=== PATIENT | female | born 1990 | race Caucasian/White ===

== ENCOUNTER 2019-12-08 00:37 | Emergency (ER) | payer MEDICAID, OTHER ==
[2019-12-08] MEDS ORDERED: Ketorolac 30 MG/ML SDV IVPUSH ONE (00:42)
--- NOTE | 2019-12-08 01:07 | EDM.PDOC ---
ED HPI GENERAL MEDICAL PROBLEM - General Chief Complaint: General Stated Complaint: PELVIC PAIN Time Seen by Provider: 12/08/19 00:41 Source of Information: Reports: Patient History Limitations: Reports: No Limitations - History of Present Illness INITIAL COMMENTS - FREE TEXT/NARRATIVE: Patient comes to ER from [facility] after experiencing sudden sharp lower left quadrant pain while at work. No history of similar pain in past. No history of ovarian cysts. Just finished LMP several days ago. Was feeling well before this. Eating and drinking normally. No UTI complaints. No Gi issues such as nausea/vomiting/constipation/loose stools. Pain radiates towards low back and also across lower abdomen a bit towards right. Tearful, slightly bent over upon arrival. Denies fevers/chills. Left Lower Pelvic Pain Score (Numeric/FACES): 7 - Related Data Allergies Allergy/AdvReac Type Severity Reaction Status Date / Time No Known Allergies Allergy Verified 12/08/19 00:46 Home Meds: Home Meds . [No Known Home Meds] 12/08/19 [History] Social & Family History - Tobacco Use Smoking Status *Q: Current Every Day Smoker Packs/Tins Daily: 0.5 - Caffeine Use Caffeine Use: Reports: Energy Drinks - Alcohol Use Alcohol Use History: No - Recreational Drug Use Recreational Drug Use: No Drug Use in Last 12 Months: No ED ROS GENERAL - Review of Systems Review Of Systems: Comprehensive ROS is negative, except as noted in HPI. ED EXAM, GENERAL - Physical Exam Exam: See Below Exam Limited By: No Limitations General Appearance: Alert, Moderate Distress Eye Exam: Bilateral Eye: EOMI, PERRL Ears: Hearing Grossly Normal Nose: No: Nasal Deformity, Nasal Swelling, Nasal Drainage Throat/Mouth: Normal Lips, Normal Voice, No Airway Compromise Head: Atraumatic, Normocephalic Neck: Supple, Non-Tender, Full Range of Motion Respiratory/Chest: No Respiratory Distress, Lungs Clear, Normal Breath Sounds, No Accessory Muscle Use, Chest Non-Tender Cardiovascular: Regular Rate, Rhythm, No Murmur GI/Abdominal: Normal Bowel Sounds, Soft, Tender (tender over left lower quadrant/suprapubic area with some milder tenderness noted right lower quadrant. ). No: Guarding, Rigid, Rebound (Female) Exam: Deferred Rectal (Female) Exam: Deferred Back Exam: Normal Inspection. No: CVA Tenderness (L), CVA Tenderness (R), Muscle Spasm, Paraspinal Tenderness, Vertebral Tenderness Extremities: Normal Inspection Neurological: Alert, Oriented, Normal Cognition, No Motor/Sensory Deficits Psychiatric: Anxious Skin Exam: Warm, Dry, Intact, Normal Color Course - Vital Signs Last Recorded V/S: Last Vital Signs Temp 36.4 C 12/08/19 08:15 Pulse 60 12/08/19 08:15 Resp 16 12/08/19 08:15 BP 116/77 12/08/19 08:15 Pulse Ox 97 12/08/19 08:15 - Orders/Labs/Meds Orders: Active Orders 24 hr Category Date Time Status Abdomen Pelvis w Cont [CT] Stat Exams 12/08/19 01:12 Taken Pelvis Non OB Comp [US] Stat Exams 12/08/19 08:12 Ordered Transvaginal Non OB [US] Stat Exams 12/08/19 08:13 Ordered Morphine Med 12/08/19 01:09 Active 2 mg IVPUSH Q1H PRN Sodium Chloride 0.9% [Saline Flush] Med 12/08/19 00:42 Active 10 ml FLUSH ASDIRECTED PRN Saline Lock Insert [OM.PC] Routine Oth 12/08/19 00:42 Ordered Medication Orders Morphine Sulfate (Morphine) 2 mg IVPUSH Q1H PRN PRN Reason: Pain Last Admin: 12/08/19 08:25 Dose: 2 mg Documented by: RICARDO Sodium Chloride (Saline Flush) 10 ml FLUSH ASDIRECTED PRN PRN Reason: Keep Vein Open Last Admin: 12/08/19 01:49 Dose: 10 ml Documented by: Admin: 12/08/19 01:18 Dose: 10 ml Documented by: SKYE Labs: Laboratory Tests 12/08/19 12/08/19 12/08/19 Range/Units 00:41 00:42 01:05 WBC 8.4 (4.0-10.2) K/uL RBC 4.17 (3.77-5.09) M/uL Hgb 12.7 (11.7-15.5) g/dL Hct 37.3 (34.0-46.0) % MCV 89.4 (84.0-98.0) fL MCH 30.5 (28.2-33.3) pg MCHC 34.0 (31.7-36.0) g/dL RDW 12.4 (11.2-14.1) % Plt Count 196 (150-350) K/uL Neut % (Auto) 66.3 (45.0-80.0) % Lymph % (Auto) 24.2 (10.0-50.0) % [place] % (Auto) 8.1 (2.0-14.0) % Eos % (Auto) 1.2 (0.0-5.0) % Baso % (Auto) 0.2 (0.0-2.0) % Neut # (Auto) 5.55 (1.40-7.00) K/uL Lymph # (Auto) 2.03 (0.50-3.50) K/uL [place] # (Auto) 0.68 (0.00-1.00) K/uL Eos # (Auto) 0.10 (0.00-0.50) K/uL Baso # (Auto) 0.02 (0.00-0.20) K/uL Sodium (136-145) mmol/L Potassium (3.5-5.1) mmol/L Chloride (98-107) mmol/L Carbon Dioxide (21.0-32.0) mmol/L BUN (7-18) mg/dL Creatinine (0.51-1.17) mg/dL Est Cr Clr Drug Dosing Estimated GFR (MDRD) mL/min Glucose (74-106) mg/dL Calcium (8.5-10.1) mg/dL Total Bilirubin (0.2-1.0) mg/dL AST (15-37) U/L ALT (12-78) U/L Alkaline Phosphatase (46-116) IU/L Total Protein (6.4-8.2) g/dL Albumin (3.4-5.0) g/dL Specimen Type Urinblad Urine Color Yellow Urine Appearance Clear Urine pH 7.0 (5.0-9.0) Ur Specific [place] 1.025 (1.005-1.030) Urine Protein Negative (NEGATIVE) mg/dL Urine Glucose (UA) Negative (NEGATIVE) mg/dL Urine Ketones Negative (NEGATIVE) mg/dL Urine Occult Blood Trace-intact H (NEGATIVE) Urine Nitrite Negative (NEGATIVE) Urine Bilirubin Negative (NEGATIVE) Urine Urobilinogen 1.0 (0.2-1.0) E.U./dL Ur Leukocyte Esterase Negative (NEGATIVE) Urine RBC 0-5 /HPF Urine WBC 0-5 /HPF Ur Epithelial Cells Few /LPF Urine Bacteria Not seen (NONE TO FEW) /HPF Urine HCG, Qual Negative 12/08/19 Range/Units 01:05 WBC (4.0-10.2) K/uL RBC (3.77-5.09) M/uL Hgb (11.7-15.5) g/dL Hct (34.0-46.0) % MCV (84.0-98.0) fL MCH (28.2-33.3) pg MCHC (31.7-36.0) g/dL RDW (11.2-14.1) % Plt Count (150-350) K/uL Neut % (Auto) (45.0-80.0) % Lymph % (Auto) (10.0-50.0) % [place] % (Auto) (2.0-14.0) % Eos % (Auto) (0.0-5.0) % Baso % (Auto) (0.0-2.0) % Neut # (Auto) (1.40-7.00) K/uL Lymph # (Auto) (0.50-3.50) K/uL [place] # (Auto) (0.00-1.00) K/uL Eos # (Auto) (0.00-0.50) K/uL Baso # (Auto) (0.00-0.20) K/uL Sodium 141 (136-145) mmol/L Potassium 3.7 (3.5-5.1) mmol/L Chloride 104 (98-107) mmol/L Carbon Dioxide 27.5 (21.0-32.0) mmol/L BUN 10 (7-18) mg/dL Creatinine 0.75 (0.51-1.17) mg/dL Est Cr Clr Drug Dosing TNP Estimated GFR (MDRD) > 60 mL/min Glucose 99 (74-106) mg/dL Calcium 8.6 (8.5-10.1) mg/dL Total Bilirubin 0.4 (0.2-1.0) mg/dL AST 19 (15-37) U/L ALT 20 (12-78) U/L Alkaline Phosphatase 81 (46-116) IU/L Total Protein 7.5 (6.4-8.2) g/dL Albumin 4.0 (3.4-5.0) g/dL Specimen Type Urine Color Urine Appearance Urine pH (5.0-9.0) Ur Specific [place] (1.005-1.030) Urine Protein (NEGATIVE) mg/dL Urine Glucose (UA) (NEGATIVE) mg/dL Urine Ketones (NEGATIVE) mg/dL Urine Occult Blood (NEGATIVE) Urine Nitrite (NEGATIVE) Urine Bilirubin (NEGATIVE) Urine Urobilinogen (0.2-1.0) E.U./dL Ur Leukocyte Esterase (NEGATIVE) Urine RBC /HPF Urine WBC /HPF Ur Epithelial Cells /LPF Urine Bacteria (NONE TO FEW) /HPF Urine HCG, Qual Meds: Medications Generic Name Dose Route Start Last Admin Trade Name Tierra PRN Reason Stop Dose Admin Morphine Sulfate 2 mg 12/08/19 01:09 12/08/19 08:25 Morphine IVPUSH 2 mg Q1H PRN Administration Pain Sodium Chloride 10 ml 12/08/19 00:42 12/08/19 01:49 Saline Flush FLUSH 10 ml ASDIRECTED PRN Administration Keep Vein Open Discontinued Medications Generic Name Dose Route Start Last Admin Trade Name Freq PRN Reason Stop Dose Admin Diatrizoate Meglum/Diatrizoate Sod 30 ml 12/08/19 01:15 Gastrografin 37% PO 12/08/19 01:16 ONETIME ONE Sodium Chloride 1,000 mls @ 150 mls/hr 12/08/19 01:08 12/08/19 01:42 Normal Saline IV 12/08/19 07:47 150 mls/hr .BOLUS ONE Administration Iopamidol 100 ml 12/08/19 01:15 Isovue-300 (61%) IVPUSH 12/08/19 01:16 ONETIME ONE Ketorolac Tromethamine 30 mg 12/08/19 00:42 12/08/19 01:15 Toradol IVPUSH 12/08/19 00:43 30 mg ONETIME ONE Administration Morphine Sulfate 2 mg 12/08/19 01:09 12/08/19 01:48 Morphine IVPUSH 12/08/19 01:10 2 mg ONETIME ONE Administration Ondansetron HCl 4 mg 12/08/19 01:08 12/08/19 01:48 Zofran IVPUSH 12/08/19 01:09 4 mg ONETIME ONE Administration - Re-Assessments/Exams Free Text/Narrative Re-Assessment/Exam: 12/08/19 01:05 Given history of sudden sharp lower abdominal pain suspect this could be related to ruptured ovarian cyst. Does not appear consistent with UTI/appy/diverticulitis/gastroenteritis. Unable to perform US study due to current hour. Pt agreeable with CT study for further evaluation. IV fluids/pain medications ordered. Labs pending. 08:[address] of abdomen/pelvis unremarkable. Plans made more US study in AM once tech available. Patient received PRN MS. Transfer of care to at 0900. Please refer to his note for final disposition and plan. Departure - Departure Time of Disposition: 08:56 Disposition: Still A Patient 30 Condition: Good Clinical Impression: Left lower quadrant abdominal pain - Discharge Information Referrals: PCP,None [Primary Care Provider] - Forms: ED Department Discharge Sepsis Event Note (ED) - Evaluation Sepsis Screening Result: No Definite Risk - Focused Exam Vital Signs: Vital Signs Temp Pulse Resp BP Pulse Ox 12/08/19 08:15 36.4 C 60 16 116/77 97 12/08/19 05:57 36.4 C 56 L 18 107/71 97 12/08/19 02:30 78 18 123/92 H 99 12/08/19 02:00 74 18 130/85 99 12/08/19 01:30 36.8 C 78 20 111/72 99 12/08/19 00:38 36.8 C 71 20 133/94 H 98 - My Orders Last 24 Hours: My Active Orders 12/08/19 00:42 Sodium Chloride 0.9% [Saline Flush] 10 ml FLUSH ASDIRECTED PRN Saline Lock Insert [OM.PC] Routine 12/08/19 01:09 Morphine 2 mg IVPUSH Q1H PRN 12/08/19 01:12 Abdomen Pelvis w Cont [CT] Stat 12/08/19 08:12 Pelvis Non OB Comp [US] Stat 12/08/19 08:13 Transvaginal Non OB [US] Stat - Assessment/Plan Last 24 Hours: My Active Orders 12/08/19 00:42 Sodium Chloride 0.9% [Saline Flush] 10 ml FLUSH ASDIRECTED PRN Saline Lock Insert [OM.PC] Routine 12/08/19 01:09 Morphine 2 mg IVPUSH Q1H PRN 12/08/19 01:12 Abdomen Pelvis w Cont [CT] Stat 12/08/19 08:12 Pelvis Non OB Comp [US] Stat 12/08/19 08:13 Transvaginal Non OB [US] Stat
[2019-12-08] MEDS ORDERED: Ondansetron 4 MG/2 ML SDV IVPUSH ONE (01:08)
[2019-12-08] MEDS ORDERED: Sodium Chloride 0.9% 1,000 ML IV ONE (01:08)
[2019-12-08] MEDS ORDERED: Morphine 2 MG/ML SYRINGE IVPUSH ONE (01:09)
[2019-12-08] MEDS ORDERED: Morphine 2 MG/ML SYRINGE IVPUSH PRN (01:09)
[2019-12-08] MEDS ORDERED: Diatrizoate Meglumine/Diatrizoate Sodium 37% 30 ML Bottle PO ONE (01:15)
[2019-12-08] MEDS ORDERED: Iopamidol 612 MG/ML 100 ML Bottle IVPUSH ONE (01:15)
[2019-12-08] MEDS: Sodium Chloride 0.9% 10 ML Syringe FLUSH PRN ×2 (01:18→01:49)
[2019-12-08 01:23] LABS: CHLORIDE,CL 104 mmol/L (98-107); SODIUM,NA 141 mmol/L (136-145)
--- NOTE | 2019-12-10 16:05 | EDM.PDOC ---
ED HPI GENERAL MEDICAL PROBLEM - General Chief Complaint: General Stated Complaint: PELVIC PAIN Time Seen by Provider: 12/08/19 00:41 Source of Information: Reports: Patient History Limitations: Reports: No Limitations - History of Present Illness INITIAL COMMENTS - FREE TEXT/NARRATIVE: Patient comes to ER from [facility] after experiencing sudden sharp lower left quadrant pain while at work. No history of similar pain in past. No history of ovarian cysts. Just finished LMP several days ago. Was feeling well before this. Eating and drinking normally. No UTI complaints. No Gi issues such as nausea/vomiting/constipation/loose stools. Pain radiates towards low back and also across lower abdomen a bit towards right. Tearful, slightly bent over upon arrival. Denies fevers/chills. Left Lower Pelvic Pain Score (Numeric/FACES): 7 - Related Data Allergies Allergy/AdvReac Type Severity Reaction Status Date / Time No Known Allergies Allergy Verified 12/08/19 00:46 Home Meds: Home Meds . [No Known Home Meds] 12/08/19 [History] Past Medical History - Past Health History Medical/Surgical History: Denies Medical/Surgical History Social & Family History - Tobacco Use Smoking Status *Q: Current Every Day Smoker Years of Tobacco use: 3 Packs/Tins Daily: 0.5 - Caffeine Use Caffeine Use: Reports: Energy Drinks - Recreational Drug Use Recreational Drug Use: No Drug Use in Last 12 Months: No ED ROS GENERAL - Review of Systems Review Of Systems: See Below : Reports: Other (pelvic pain) ED EXAM, GENERAL - Physical Exam Exam: See Below Free Text/Narrative:: Patient comes to ER from [facility] after experiencing sudden sharp lower left quadrant pain while at work. No history of similar pain in past. No history of ovarian cysts. Just finished LMP several days ago. Was feeling well before t his. Eating and drinking normally. No UTI complaints. No Gi issues such as nausea/vomiting/constipation/loose stools. Pain radiates towards low back and also across lower abdomen a bit towards right. Tearful, slightly bent over upon arrival. Denies fevers/chills. Exam Limited By: No Limitations General Appearance: Alert, Moderate Distress Ears: Hearing Grossly Normal Nose: No: Nasal Deformity, Nasal Swelling, Nasal Drainage Throat/Mouth: Normal Lips, Normal Voice, No Airway Compromise Head: Atraumatic, Normocephalic Neck: Supple, Non-Tender, Full Range of Motion Respiratory/Chest: No Respiratory Distress, Lungs Clear, Normal Breath Sounds, No Accessory Muscle Use, Chest Non-Tender Cardiovascular: Regular Rate, Rhythm, No Murmur GI/Abdominal: Normal Bowel Sounds, Soft, Tender (tender over left lower quadrant/suprapubic area with some milder tenderness noted right lower quadrant. ). No: Guarding, Rigid, Rebound Back Exam: Normal Inspection. No: CVA Tenderness (L), CVA Tenderness (R), Muscle Spasm, Paraspinal Tenderness, Vertebral Tenderness Extremities: Normal Inspection Neurological: Alert, Oriented, Normal Cognition, No Motor/Sensory Deficits Psychiatric: Anxious Skin Exam: Warm, Dry, Intact, Normal Color Course - Vital Signs Last Recorded V/S: Last Vital Signs Temp 97.5 F 12/08/19 08:15 Pulse 60 12/08/19 08:15 Resp 16 12/08/19 08:15 BP 116/77 12/08/19 08:15 Pulse Ox 97 12/08/19 08:15 - Orders/Labs/Meds Labs: Laboratory Tests 12/08/19 12/08/19 12/08/19 Range/Units 00:41 00:42 01:05 WBC 8.4 (4.0-10.2) K/uL RBC 4.17 (3.77-5.09) M/uL Hgb 12.7 (11.7-15.5) g/dL Hct 37.3 (34.0-46.0) % MCV 89.4 (84.0-98.0) fL MCH 30.5 (28.2-33.3) pg MCHC 34.0 (31.7-36.0) g/dL RDW 12.4 (11.2-14.1) % Plt Count 196 (150-350) K/uL Neut % (Auto) 66.3 (45.0-80.0) % Lymph % (Auto) 24.2 (10.0-50.0) % [place] % (Auto) 8.1 (2.0-14.0) % Eos % (Auto) 1.2 (0.0-5.0) % Baso % (Auto) 0.2 (0.0-2.0) % Neut # (Auto) 5.55 (1.40-7.00) K/uL Lymph # (Auto) 2.03 (0.50-3.50) K/uL [place] # (Auto) 0.68 (0.00-1.00) K/uL Eos # (Auto) 0.10 (0.00-0.50) K/uL Baso # (Auto) 0.02 (0.00-0.20) K/uL Sodium (136-145) mmol/L Potassium (3.5-5.1) mmol/L Chloride (98-107) mmol/L Carbon Dioxide (21.0-32.0) mmol/L BUN (7-18) mg/dL Creatinine (0.51-1.17) mg/dL Est Cr Clr Drug Dosing Estimated GFR (MDRD) mL/min Glucose (74-106) mg/dL Calcium (8.5-10.1) mg/dL Total Bilirubin (0.2-1.0) mg/dL AST (15-37) U/L ALT (12-78) U/L Alkaline Phosphatase (46-116) IU/L Total Protein (6.4-8.2) g/dL Albumin (3.4-5.0) g/dL Specimen Type Urinblad Urine Color Yellow Urine Appearance Clear Urine pH 7.0 (5.0-9.0) Ur Specific [place] 1.025 (1.005-1.030) Urine Protein Negative (NEGATIVE) mg/dL Urine Glucose (UA) Negative (NEGATIVE) mg/dL Urine Ketones Negative (NEGATIVE) mg/dL Urine Occult Blood Trace-intact H (NEGATIVE) Urine Nitrite Negative (NEGATIVE) Urine Bilirubin Negative (NEGATIVE) Urine Urobilinogen 1.0 (0.2-1.0) E.U./dL Ur Leukocyte Esterase Negative (NEGATIVE) Urine RBC 0-5 /HPF Urine WBC 0-5 /HPF Ur Epithelial Cells Few /LPF Urine Bacteria Not seen (NONE TO FEW) /HPF Urine HCG, Qual Negative 12/08/19 Range/Units 01:05 WBC (4.0-10.2) K/uL RBC (3.77-5.09) M/uL Hgb (11.7-15.5) g/dL Hct (34.0-46.0) % MCV (84.0-98.0) fL MCH (28.2-33.3) pg MCHC (31.7-36.0) g/dL RDW (11.2-14.1) % Plt Count (150-350) K/uL Neut % (Auto) (45.0-80.0) % Lymph % (Auto) (10.0-50.0) % [place] % (Auto) (2.0-14.0) % Eos % (Auto) (0.0-5.0) % Baso % (Auto) (0.0-2.0) % Neut # (Auto) (1.40-7.00) K/uL Lymph # (Auto) (0.50-3.50) K/uL [place] # (Auto) (0.00-1.00) K/uL Eos # (Auto) (0.00-0.50) K/uL Baso # (Auto) (0.00-0.20) K/uL Sodium 141 (136-145) mmol/L Potassium 3.7 (3.5-5.1) mmol/L Chloride 104 (98-107) mmol/L Carbon Dioxide 27.5 (21.0-32.0) mmol/L BUN 10 (7-18) mg/dL Creatinine 0.75 (0.51-1.17) mg/dL Est Cr Clr Drug Dosing TNP Estimated GFR (MDRD) > 60 mL/min Glucose 99 (74-106) mg/dL Calcium 8.6 (8.5-10.1) mg/dL Total Bilirubin 0.4 (0.2-1.0) mg/dL AST 19 (15-37) U/L ALT 20 (12-78) U/L Alkaline Phosphatase 81 (46-116) IU/L Total Protein 7.5 (6.4-8.2) g/dL Albumin 4.0 (3.4-5.0) g/dL Specimen Type Urine Color Urine Appearance Urine pH (5.0-9.0) Ur Specific [place] (1.005-1.030) Urine Protein (NEGATIVE) mg/dL Urine Glucose (UA) (NEGATIVE) mg/dL Urine Ketones (NEGATIVE) mg/dL Urine Occult Blood (NEGATIVE) Urine Nitrite (NEGATIVE) Urine Bilirubin (NEGATIVE) Urine Urobilinogen (0.2-1.0) E.U./dL Ur Leukocyte Esterase (NEGATIVE) Urine RBC /HPF Urine WBC /HPF Ur Epithelial Cells /LPF Urine Bacteria (NONE TO FEW) /HPF Urine HCG, Qual Meds: Medications Discontinued Medications Generic Name Dose Route Start Last Admin Trade Name Freq PRN Reason Stop Dose Admin Diatrizoate Meglum/Diatrizoate Sod 30 ml 12/08/19 01:15 Gastrografin 37% PO 12/08/19 01:16 ONETIME ONE Sodium Chloride 1,000 mls @ 150 mls/hr 12/08/19 01:08 12/08/19 01:42 Normal Saline IV 12/08/19 07:47 150 mls/hr .BOLUS ONE Administration Iopamidol 100 ml 12/08/19 01:15 Isovue-300 (61%) IVPUSH 12/08/19 01:16 ONETIME ONE Ketorolac Tromethamine 30 mg 12/08/19 00:42 12/08/19 01:15 Toradol IVPUSH 12/08/19 00:43 30 mg ONETIME ONE Administration Morphine Sulfate 2 mg 12/08/19 01:09 12/08/19 01:48 Morphine IVPUSH 12/08/19 01:10 2 mg ONETIME ONE Administration Morphine Sulfate 2 mg 12/08/19 01:09 12/08/19 08:25 Morphine IVPUSH 2 mg Q1H PRN Administration Pain Ondansetron HCl 4 mg 12/08/19 01:08 12/08/19 01:48 Zofran IVPUSH 12/08/19 01:09 4 mg ONETIME ONE Administration Sodium Chloride 10 ml 12/08/19 00:42 12/08/19 01:49 Saline Flush FLUSH 10 ml ASDIRECTED PRN Administration Keep Vein Open - Re-Assessments/Exams Free Text/Narrative Re-Assessment/Exam: 12/10/19 16:03 See US report No acute findings Pt will be discharged to follow up in clinic To ER if worse Departure - Departure Time of Disposition: 10:00 Disposition: Home, Self-Care 01 Condition: Good Clinical Impression: Left lower quadrant abdominal pain - Discharge Information *PRESCRIPTION DRUG MONITORING PROGRAM REVIEWED*: Not Applicable *COPY OF PRESCRIPTION DRUG MONITORING REPORT IN PATIENT ANNIKA: Not Applicable Instructions: Abdominal Pain, Adult, [id number] Referrals: PCP,None [Primary Care Provider] - Forms: ED Department Discharge Additional Instructions: Follow up in clinic To ER if worse Sepsis Event Note (ED) - Evaluation Sepsis Screening Result: No Definite Risk
== END 2019-12-08 10:10 | disposition home or self-care (01) ==
LOC: LL.ED 00:37
DX: R10.32 Left lower quadrant pain (principal); F17.210 Nicotine dependence, cigarettes, uncomplicated
CPT/HCPCS: 36415; 74177; 76830; 76856; 80053; 81001; 81025; 85025; 96374; 96375; 96376; 99284; J1885; J2270; J2405; J7030; Q9963; Q9967

== ENCOUNTER 2020-05-18 13:24 | Emergency (ER) | payer MEDICAID ==
--- NOTE | 2020-05-18 13:51 | EDM.PDOC ---
ED HPI GENERAL MEDICAL PROBLEM - General Chief Complaint: General Stated Complaint: R tooth pain Time Seen by Provider: 05/18/20 13:29 Source of Information: Reports: Patient History Limitations: Reports: No Limitations - History of Present Illness INITIAL COMMENTS - FREE TEXT/NARRATIVE: Pt states part of a tooth broke off last night Pain on both sides of jaw Has hx/o root canal in past Onset: Gradual Duration: Day(s):, Getting Worse Location: Reports: Face - Related Data Allergies Allergy/AdvReac Type Severity Reaction Status Date / Time No Known Allergies Allergy Verified 05/18/20 13:25 Home Meds: Home Meds . [No Known Home Meds] 12/08/19 [History] Past Medical History - Past Health History Medical/Surgical History: Denies Medical/Surgical History Social & Family History - Caffeine Use Caffeine Use: Reports: Energy Drinks ED ROS GENERAL - Review of Systems Review Of Systems: See Below HEENT: Reports: Dental Pain ED EXAM, GENERAL - Physical Exam Exam: See Below General Appearance: Moderate Distress Throat/Mouth: Other (Multiple dental caries Fractured tooth left lower jaw) Departure - Departure Time of Disposition: 14:00 Disposition: Home, Self-Care 01 Clinical Impression: Pain, dental - Discharge Information *PRESCRIPTION DRUG MONITORING PROGRAM REVIEWED*: Yes *COPY OF PRESCRIPTION DRUG MONITORING REPORT IN PATIENT ANNIKA: No Instructions: Acute Pain, Adult Additional Instructions: Follow up with dentist Rx Clindamycin 150 mg QID for 10 days Rx Tramadol One pill every 6 hours for pain # 10
== END 2020-05-18 14:00 | disposition home or self-care (01) ==
LOC: LL.ED 13:24
DX: K03.81 Cracked tooth (principal); K02.9 Dental caries, unspecified
CPT/HCPCS: 99282; 99283

== ENCOUNTER 2020-06-28 12:09 | Emergency (ER) | payer MEDICAID ==
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
== END 2020-06-28 12:56 ==
LOC: LL.ED 12:09
DX: Z02.89 Encounter for other administrative examinations (principal)
CPT/HCPCS: 99282; 99283

== ENCOUNTER 2020-07-01 22:50 | Emergency (ER) | payer MEDICAID ==
--- NOTE | 2020-07-01 23:09 | EDM.PDOC ---
ED HPI GENERAL MEDICAL PROBLEM - General Chief Complaint: Abdominal Pain Stated Complaint: abdominal pain Time Seen by Provider: 07/01/20 23:00 Source of Information: Reports: Patient History Limitations: Reports: No Limitations - History of Present Illness INITIAL COMMENTS - FREE TEXT/NARRATIVE: She presents to the emergency department by private vehicle for evaluation of lower abdominal pain. She describes a severe pain in the midline lower abdomen/pelvis. Pain started about an hour prior to arrival. Patient was having intercourse at the time the pain started. Pain is constant and does not radiate. She has not had any vaginal bleeding or discharge. Last menstrual period was 1 week ago and was normal. Normal bowel movement earlier today. No nausea or vomiting. No diarrhea. No fever or chills. She did have a similar pain about 8 months ago and was seen in the emergency room at that time with essentially negative work-up. No regular medications. No underlying medical problems. Abdominal Pain Score (Numeric/FACES): 9 - Related Data Allergies Allergy/AdvReac Type Severity Reaction Status Date / Time No Known Allergies Allergy Verified 07/01/20 22:54 Home Meds: Home Meds . [No Known Home Meds] 12/08/19 [History] Past Medical History - Past Health History Medical/Surgical History: Denies Medical/Surgical History Social & Family History - Tobacco Use Tobacco Use Status *Q: Current Every Day Tobacco User Years of Tobacco use: 10 Packs/Tins Daily: 0.5 - Caffeine Use Caffeine Use: Reports: None - Recreational Drug Use Recreational Drug Use: No ED ROS GENERAL - Review of Systems Review Of Systems: See Below Constitutional: Denies: Fever, Chills Respiratory: Denies: Shortness of Breath, Cough Cardiovascular: Denies: Chest Pain, Palpitations GI/Abdominal: Reports: Abdominal Pain. Denies: Black Stool, Constipation, Diarrhea, Nausea, Vomiting : Denies: Dysuria, Frequency, Urgency Neurological: Denies: Confusion, Dizziness Psychiatric: Denies: Anxiety, Depression ED EXAM, GENERAL - Physical Exam Exam: See Below Exam Limited By: No Limitations General Appearance: Alert, WD/WN, Moderate Distress Respiratory/Chest: No Respiratory Distress, Lungs Clear, Normal Breath Sounds Cardiovascular: Regular Rate, Rhythm, No Gallop, No Murmur, No Rub GI/Abdominal: Normal Bowel Sounds, Soft, No Distention, No Mass, Tender (Moderate tenderness in the midline lower abdomen. Mild tenderness in the left lower quadrant. No other significant tenderness.). No: Guarding, Rebound (Female) Exam: Normal External Exam, Normal Speculum Exam, Vaginal Discharge (Small amount of white discharge diffusely in the vaginal vault.), Other (Moderate tenderness in the adnexa bilaterally. No palpable masses.). No: Vaginal Bleeding, Vaginal Lesions, Vaginal Tears Course - Vital Signs Text/Narrative:: CBC showed slightly elevated white count. Labs were otherwise unremarkable. Exam was essentially unremarkable other than some adnexal tenderness bilaterally. Most likely ovarian cysts. She was given Toradol 60 mg IM and did show significant improvement in her pain. We discussed getting a CT scan of the abdomen and pelvis but that she was improving, decided against that. Last Recorded V/S: Last Vital Signs Temp 37.4 C 07/01/20 22:50 Pulse 89 07/01/20 22:50 Resp 20 07/01/20 22:50 BP 105/83 07/01/20 22:50 Pulse Ox 98 07/01/20 22:50 - Orders/Labs/Meds Labs: Laboratory Tests 07/01/20 07/01/20 Range/Units 23:28 23:28 WBC 12.4 H (4.0-10.2) K/uL RBC 3.69 L (3.77-5.09) M/uL Hgb 11.2 L D (11.7-15.5) g/dL Hct 33.3 L (34.0-46.0) % MCV 90.2 (84.0-98.0) fL MCH 30.4 (28.2-33.3) pg MCHC 33.6 (31.7-36.0) g/dL RDW 12.3 (11.2-14.1) % Plt Count 175 (150-350) K/uL Neut % (Auto) 74.2 (45.0-80.0) % Lymph % (Auto) 18.0 (10.0-50.0) % [place] % (Auto) 6.6 (2.0-14.0) % Eos % (Auto) 1.0 (0.0-5.0) % Baso % (Auto) 0.2 (0.0-2.0) % Neut # (Auto) 9.17 H (1.40-7.00) K/uL Lymph # (Auto) 2.22 (0.50-3.50) K/uL [place] # (Auto) 0.82 (0.00-1.00) K/uL Eos # (Auto) 0.12 (0.00-0.50) K/uL Baso # (Auto) 0.02 (0.00-0.20) K/uL Sodium 145 (136-145) mmol/L Potassium 3.6 (3.5-5.1) mmol/L Chloride 107 (98-107) mmol/L Carbon Dioxide 29.9 (21.0-32.0) mmol/L BUN 13 (7-18) mg/dL Creatinine 0.68 (0.51-1.17) mg/dL Est Cr Clr Drug Dosing 114.28 mL/min Estimated GFR (MDRD) > 60 mL/min Glucose 118 H (74-106) mg/dL Calcium 8.1 L (8.5-10.1) mg/dL Total Bilirubin 0.2 (0.2-1.0) mg/dL AST 14 L (15-37) U/L ALT 19 (12-78) U/L Alkaline Phosphatase 82 (46-116) IU/L Total Protein 6.7 (6.4-8.2) g/dL Albumin 3.5 (3.4-5.0) g/dL Meds: Medications Discontinued Medications Generic Name Dose Route Start Last Admin Trade Name Freq PRN Reason Stop Dose Admin Ketorolac Tromethamine 60 mg 07/01/20 23:22 07/01/20 23:24 Toradol IM 07/01/20 23:23 60 mg ONETIME ONE Administration Departure - Departure Time of Disposition: 11:55 Disposition: Home, Self-Care 01 Condition: Good Clinical Impression: Pelvic pain - Discharge Information *PRESCRIPTION DRUG MONITORING PROGRAM REVIEWED*: Not Applicable *COPY OF PRESCRIPTION DRUG MONITORING REPORT IN PATIENT ANNIKA: Not Applicable Instructions: Pelvic Pain, Female, [id number] Forms: ED Department Discharge Additional Instructions: A warm compress to the lower abdomen as needed. Tylenol and/or Advil as needed. Follow-up with [facility] if symptoms are persisting. Return to the emergency department with worsening pain. Sepsis Event Note (ED) - Evaluation Sepsis Screening Result: No Definite Risk - Focused Exam Vital Signs: Vital Signs Temp Pulse Resp BP Pulse Ox 07/01/20 22:50 37.4 C 89 20 105/83 98
[2020-07-01] MEDS ORDERED: Ketorolac 60 MG/2 ML SDV IM ONE (23:22)
[2020-07-01 23:45] LABS: CHLORIDE,CL 107 mmol/L (98-107); SODIUM,NA 145 mmol/L (136-145)
== END 2020-07-02 00:15 | disposition home or self-care (01) ==
LOC: LL.ED 22:50
DX: R10.2 Pelvic and perineal pain (principal); Z72.0 Tobacco use
CPT/HCPCS: 36415; 80053; 85025; 96372; 99284; J1885; 99283

== ENCOUNTER 2020-07-03 13:19 | Emergency (ER) | payer MEDICAID ==
--- NOTE | 2020-07-03 13:40 | EDM.PDOC ---
ED HPI GENERAL MEDICAL PROBLEM - General Chief Complaint: Eye Problems Stated Complaint: left eye edema Time Seen by Provider: 07/03/20 13:20 Source of Information: Reports: Patient - History of Present Illness INITIAL COMMENTS - FREE TEXT/NARRATIVE: She presents to the emergency department for evaluation of swelling in her left eye. Started yesterday morning and is gradually worsened. She has swelling in the upper eyelid. She has not noted significant redness. No drainage from the eye. No change in her vision. She does get a foreign body sensation when she blinks. No injury that she is aware of. No history of previous similar problems. No nasal congestion or runny nose. No sore throat. No fever or chills. She is otherwise without complaints. - Related Data Allergies Allergy/AdvReac Type Severity Reaction Status Date / Time No Known Allergies Allergy Verified 07/03/20 13:20 Home Meds: Home Meds . [No Known Home Meds] 12/08/19 [History] Past Medical History - Past Health History Medical/Surgical History: Denies Medical/Surgical History Social & Family History - Caffeine Use Caffeine Use: Reports: None ED ROS GENERAL - Review of Systems Review Of Systems: See Below Constitutional: Denies: Fever, Chills HEENT: Reports: Eye Pain. Denies: Eye Discharge, Rhinitis, Sinus Problem, Throat Pain Respiratory: Denies: Shortness of Breath, Cough Cardiovascular: Denies: Palpitations GI/Abdominal: Denies: Abdominal Pain, Nausea, Vomiting ED EXAM GENERAL W FULL EYE - Physical Exam Exam: See Below Exam Limited By: No Limitations General Appearance: Alert, WD/WN, No Apparent Distress Comments: Left eye: Mild diffuse swelling in the left upper eyelid. No swelling in the lower lid. No surrounding redness or swelling. No significant tenderness. Inversion of the upper eyelid shows a small lump at the medial one third junction with mi nimal surrounding redness. No foreign body seen. Pupil round and reactive to light. Extraocular muscles intact. Vision is equal to the right eye. Right eye: No swelling or redness in the lids. No scleral injection. Pupils round and reactive to light. Extraocular muscles intact. Vision is grossly normal. Course - Vital Signs Last Recorded V/S: Last Vital Signs Temp 36.7 C 07/03/20 13:20 Pulse 63 07/03/20 13:20 Resp 16 07/03/20 13:20 BP 117/72 07/03/20 13:20 Pulse Ox 99 07/03/20 13:20 Departure - Departure Time of Disposition: 13:35 Disposition: Home, Self-Care 01 Condition: Good Clinical Impression: Hordeolum externum left upper eyelid - Discharge Information *PRESCRIPTION DRUG MONITORING PROGRAM REVIEWED*: Not Applicable *COPY OF PRESCRIPTION DRUG MONITORING REPORT IN PATIENT ANNIKA: Not Applicable Additional Instructions: Gentamicin eyedrops. 2 drops in the left eye 4 times daily for up to 5 days. Apply warm compress to the left eye for 10 to 15 minutes every 3-4 hours. Follow-up if worsening over the next 2 to 3 days. Sepsis Event Note (ED) - Evaluation Sepsis Screening Result: No Definite Risk - Focused Exam Vital Signs: Vital Signs Temp Pulse Resp BP Pulse Ox 07/03/20 13:20 36.7 C 63 16 117/72 99 - Assessment/Plan Assessment:: Hordeolum left upper eyelid Plan: Discussed findings and treatment options. Warm compresses to the left eye for 15 minutes every 3-4 hours. Gentamicin eyedrops. 2 drops in the left eye 4 times daily for 3 to 5 days. Follow-up if not improving.
== END 2020-07-03 13:53 | disposition home or self-care (01) ==
LOC: LL.ED 13:19
DX: H00.014 Hordeolum externum left upper eyelid (principal)
CPT/HCPCS: 99283